=== PATIENT | male | born 1995 | race American Indian/Alaskan Native ===

== ENCOUNTER 2020-05-17 05:00 | Emergency (ER) | payer SELFPAY ==
[2020-05-17] MEDS ORDERED: predniSONE 20 MG TAB PO ONE (05:21)
[2020-05-17] MEDS ORDERED: ALBUTEROL 2.5 MG/3 ML NEBU IH ONE (05:21)
[2020-05-17 05:27] VITALS: BP 116/75
--- NOTE | 2020-05-17 06:01 | XRay Report ---
CHEST 1 VIEW 0543 INDICATION / CLINICAL INFORMATION: cough, dyspnea COMPARISON: None available. FINDINGS: SUPPORT DEVICES: None HEART / MEDIASTINUM: No significant abnormality. LUNGS / PLEURA: No significant pulmonary or pleural abnormality. No pneumothorax. ADDITIONAL FINDINGS: No significant additional findings. IMPRESSION: No significant acute abnormality Signer Name: Zeus Nicole MD Signed: 05/17/2020 5:57 AM Workstation Name: [id number]
--- NOTE | 2020-05-17 06:33 | Emergency Department Report ---
ED Shortness of Breath HPI - General Chief Complaint: Adult Asthma Stated Complaint: CHEST PAIN/BARRERA Source: patient Mode of arrival: Ambulatory Limitations: No Limitations - History of Present Illness Initial Comments: Patient is a 25-year-old -[place] male with a history of asthma with occasional exacerbations and who does not use any medications at home presents to the ED with acute onset persistent shortness of breath, persistent wheezing and mild dry cough for the last 1 hour. Patient states that he initially developed nasal and sinus congestion about 3 days ago and has been taking [id number] medications which appeared well controlled the symptoms. Patient however states that while asleep he woke up with chest tightness and shortness of breath about 1 hour ago and had to come to the ED for evaluation because he does not have any bronchodilators at home. Patient denies chest pain, dizziness, syncope, fever, chills, nausea, vomiting, sore throat, headache, diarrhea, abdominal pain, change in vision or headache. MD Complaint: shortness of breath, cough, "asthma attack" -: Sudden, hour(s) (1) Severity: moderate Pain Scale: 5 Quality: other (tightness) Consistency: constant Improves With: nothing Worsens With: nothing Known History Of: asthma Context: recent URI Associated Symptoms: denies other symptoms, cough Treatments Prior to Arrival: none - Related Data Home Oxygen Therapy: No Previous Rx's Medication Instructions Recorded Last Taken Type Albuterol Sulfate [Proventil Hfa] 1 - 2 puff IH Q6H PRN #1 hfa.aer.ad 05/17/20 Unknown Rx Benzonatate [Tessalon Perles] 100 mg PO Q8HR #30 capsule 05/17/20 Unknown Rx Ibuprofen [Motrin] 600 mg PO Q8H PRN #20 tablet 05/17/20 Unknown Rx methylPREDNISolone [Medrol 4MG 4 mg PO DAILY #21 tab.ds.pk 05/17/20 Unknown Rx DOSEPAK (21 tabs)] Allergies Allergy/AdvReac Type Severity Reaction Status Date / Time No Known Allergies Allergy Unverified 05/17/20 05:32 ED Review of Systems ROS: Stated complaint: CHEST PAIN/BARRERA Other details as noted in HPI Constitutional: denies: chills, fever Eyes: denies: eye pain, eye discharge, vision change ENT: denies: ear pain, throat pain Respiratory: cough, shortness of breath, wheezing Cardiovascular: denies: chest pain, palpitations Endocrine: no symptoms reported Gastrointestinal: denies: abdominal pain, nausea, diarrhea Genitourinary: denies: urgency, dysuria Musculoskeletal: denies: back pain, joint swelling, arthralgia Skin: denies: rash, lesions Neurological: denies: headache, weakness, paresthesias Psychiatric: denies: anxiety, depression Hematological/Lymphatic: denies: easy bleeding, easy bruising ED Past Medical Hx - Past Medical History Previous Medical History?: Yes Hx Asthma: Yes - Surgical History Past Surgical History?: No - Social History Smoking Status: Never Smoker Substance Use Type: None - Medications Home Medications: Home Medications Medication Instructions Recorded Confirmed Last Taken Type Albuterol Sulfate [Proventil Hfa] 1 - 2 puff IH Q6H PRN #1 hfa.aer.ad 05/17/20 Unknown Rx Benzonatate [Tessalon Perles] 100 mg PO Q8HR #30 capsule 05/17/20 Unknown Rx Ibuprofen [Motrin] 600 mg PO Q8H PRN #20 tablet 05/17/20 Unknown Rx methylPREDNISolone [Medrol 4MG 4 mg PO DAILY #21 tab.ds.pk 05/17/20 Unknown Rx DOSEPAK (21 tabs)] ED Physical Exam - General Limitations: No Limitations General appearance: alert, in no apparent distress - Head Head exam: Present: atraumatic, normocephalic, normal inspection - Eye Eye exam: Present: normal appearance, PERRL, EOMI Pupils: Present: normal accommodation - ENT ENT exam: Present: normal exam, normal orophraynx, mucous membranes moist, TM's normal bilaterally, normal external ear exam - Neck Neck exam: Present: normal inspection, full ROM - Respiratory Respiratory exam: Present: wheezes (Mildly diffuse coarse wheezes throughout). Absent: respiratory distress, rales, rhonchi, chest wall tenderness, accessory muscle use, decreased breath sounds, prolonged expiratory, other - Cardiovascular Cardiovascular Exam: Present: regular rate, normal rhythm, normal heart sounds. Absent: systolic murmur, diastolic murmur, rubs, gallop - GI/Abdominal GI/Abdominal exam: Present: soft, normal bowel sounds. Absent: tenderness, guarding, hyperactive bowel sounds, hypoactive bowel sounds, organomegaly - Extremities Exam Extremities exam: Present: normal inspection, full ROM, normal capillary refill - Back Exam Back exam: Present: normal inspection, full ROM. Absent: tenderness, CVA tenderness (R), CVA tenderness (L), muscle spasm, paraspinal tenderness, vertebral tenderness - Neurological Exam Neurological exam: Present: alert, oriented X3, CN II-XII intact, normal gait, reflexes normal - Psychiatric Psychiatric exam: Present: normal affect, normal mood - Skin Skin exam: Present: warm, dry, intact, normal color. Absent: rash ED Course Vital Signs 05/17/20 05:21 Temperature 97.9 F Pulse Rate 77 Respiratory 18 Rate Blood Pressure 116/75 O2 Sat by Pulse 97 Oximetry ED Medical Decision Making - Radiology Data Radiology results: report reviewed, image reviewed Findings [facility] [address] [place] [address] XRay Report Signed Patient: MATTHEW HURLEY MR#: [id number] : 1995 Acct:[id number] Age/Sex: 25 / M ADM Date: 05/17/20 Loc: ED Attending Dr: Ordering Physician: MERCED SÁNCHEZ Date of Service: 05/17/20 Procedure(s): XR chest 1V ap Accession Number(s): [id number] cc: MERCED SÁNCHEZ Fluoro Time In Minutes: CHEST 1 VIEW 0543 INDICATION / CLINICAL INFORMATION: cough, dyspnea COMPARISON: None available. FINDINGS: SUPPORT DEVICES: None HEART / MEDIASTINUM: No significant abnormality. LUNGS / PLEURA: No significant pulmonary or pleural abnormality. No pneumothorax. ADDITIONAL FINDINGS: No significant additional findings. IMPRESSION: No significant acute abnormality Signer Name: Zeus Nicole MD Signed: 05/17/2020 5:57 AM Workstation Name: [id number] Transcribed By: TORO Dictated By: Zeus Nicole MD Electronically Authenticated By: Zeus Nicole MD Signed Date/Time: 05/17/20 0557 DD/ 6 TD/TT: - Medical Decision Making This is a 25-year-old -[place] male with a history of asthma with occasional exacerbations and who does not use any medications at home presents to the ED with acute onset persistent shortness of breath, persistent wheezing and mild dry cough for the last 1 hour. Patient states that he initially developed nasal and sinus congestion about 3 days ago and has been taking [id number] medications which appeared well controlled the symptoms. Patient however states that while asleep he woke up with chest tightness and shortness of breath about 1 hour ago and had to come to the ED for evaluation because he does not have any bronchodilators at home. In the ED, patient is alert and oriented x3 and is not in distress. Patient received albuterol nebulizer treatment in the ED. Patient also received oral prednisone in the ED. Chest x-ray showed no acute cardiopulmonary abnormalities or pneumonitis. On reevaluation, patient wheezing resolved, patient felt better and was discharged home on medications. Patient was advised to return to the ED immediately if symptoms get worse. Patient's oxygen saturation ranged between 99 to 100% in room air. Patient was advised to follow-up with his primary care physician in 3 to 5 days for reevaluation. - Differential Diagnosis Asthma; bronchitis; URI; shortness of breath,: Pneumonia; Critical care attestation.: If time is entered above; I have spent that time in minutes in the direct care of this critically ill patient, excluding procedure time. ED Disposition Clinical Impression: Shortness of breath Asthmatic bronchitis with acute exacerbation Qualifiers: Asthma severity: mild Asthma persistence: intermittent Qualified Code(s): J45.21 - Mild intermittent asthma with (acute) exacerbation Disposition: DC-01 TO HOME OR SELFCARE Is pt being admited?: No Does the pt Need Aspirin: No Condition: Stable Instructions: Shortness of Breath, Adult, [id number], Asthma, Adult, [id number] Additional Instructions: Chest x-ray showed no acute cardiopulmonary abnormalities or pneumonitis. They will take medications with food, drink plenty of fluids and follow-up with your primary care physician in 3 to 5 days for reevaluation. Return to the ED immediately if symptoms get worse. Prescriptions: methylPREDNISolone [Medrol 4MG DOSEPAK (21 tabs)] 4 mg PO DAILY #21 tab.ds.pk Ibuprofen [Motrin] 600 mg PO Q8H PRN #20 tablet PRN Reason: Pain Albuterol Sulfate [Proventil Hfa] 1 - 2 puff IH Q6H PRN #1 hfa.aer.ad PRN Reason: Shortness Of Breath Benzonatate [Tessalon Perles] 100 mg PO Q8HR #30 capsule Referrals: CHAD SERNA MD [Staff Physician] - 3-5 Days Time of Disposition: 06:35 Print Language: DIVEHI
== END 2020-05-17 06:45 | disposition home or self-care (01) ==
LOC: ED 05:00
DX: J45.901 Unspecified asthma with (acute) exacerbation (principal); R06.02 Shortness of breath; Z79.899 Other long term (current) drug therapy
CPT/HCPCS: 71045; 93005; 94640; 99283; J7512